=== PATIENT | female | born 1965 | race Caucasian/White ===

== ENCOUNTER 2016-12-17 22:17 | Inpatient (IN) | payer BC, OTHER ==
[~2016-12-17] VITALS: Ht 160 cm; Wt 79.4 kg
[2016-12-17 23:00] VITALS: BP 155/96
--- NOTE | 2016-12-17 23:05 | NUR ---
Pre-admission assessment Patient is a 51-year old, female, seen at intake, AAOx4, no SOB and noted to be anxious at this time. Provided reassurance regarding admission policies of the unit. Patient is coherent and able to respond to questions appropriately. Pt is ambulatory with steady gait. Pt reports taking the following substances: Xanax 2 mg PO HS (prescribed), Vicodin 5/300 mg PO PO daily (not prescribed) and Red Wine 1 bottle (750 ml) PO daily. Vital signs taken and as follows: CY=472/96, P=112, O2 sat on RA=98%, RR=18 T=98.4. Pt verbalized instructions and teachings regarding disposal of narcotic and other controlled home meds, unit protocols such as taking of vital signs Q4H and handling and disposal of contraband.
[2016-12-17] MEDS ORDERED: ONDANSETRON ODT 4 MG TAB.RAPDIS SL PRN (23:30)
[2016-12-17] MEDS ORDERED: ONDANSETRON 4 MG/2 ML VIAL IM PRN (23:30)
[2016-12-17] MEDS ORDERED: MAGNESIUM HYDROXIDE 30 ML LIQUID UDC PO PRN (23:30)
[2016-12-17] MEDS ORDERED: LORAZEPAM 2 MG/1 ML VIAL IM PRN (23:30)
[2016-12-17] MEDS ORDERED: MIRALAX 17 GM POWD.PACK PO PRN (23:30)
[2016-12-17] MEDS ORDERED: ACETAMINOPHEN 325 MG TABLET PO PRN (23:30)
[2016-12-17] MEDS ORDERED: THIAMINE HCL 200 MG/2 ML VIAL IM ONE (23:30)
[2016-12-17] MEDS ORDERED: MAG HYDROX/AL HYDROX/SIMETH 30 ML LIQUID UDC PO PRN (23:30)
[2016-12-17] MEDS ORDERED: BUPRENORPHINE HCL 2 MG TAB.SUBL SL PRN (23:30)
[2016-12-17] MEDS ORDERED: LOPERAMIDE HCL 2 MG CAPSULE PO PRN ×2 (23:30)
[2016-12-17] MEDS ORDERED: LORAZEPAM 1 MG TABLET PO PRN ×2 (23:30)
[2016-12-17] MEDS ORDERED: DICYCLOMINE HCL 20 MG TABLET PO PRN (23:30)
[2016-12-17] MEDS ORDERED: diphenhydrAMINE 50 MG CAPSULE PO PRN (23:30)
--- NOTE | 2016-12-17 23:35 | NUR ---
ADMISSION Patient is a 51-year old, female, admitted and escorted by [facility] at 2325 to unit. Skin check done, no open skin noted. With bruising on the right upper arm and right eye. Per pt, she hit the cabinet at home. Patient denies Suicidal Ideation nor Homicidal Ideation. No edema noted. Pt is ambulatory with steady gait. Pt stands 5'3" and weighs 175 pounds per bed scale. Vital signs are as follows: BP-152/95, T-98.1, P-108, RR-20 and SPO2 on RA=97%. Patient is AAOx4 and with anxiety noted at this time. Lung sounds clear bilaterally upon auscultation. No cough noted and bowel sounds are present on all quadrants. PERRLA and pupils are 3 mm upon visual check. Pt reports NKA, on Regular Diet and is Full Code. Pt denies any seizure history. Per pt, withdrawal symptoms are anxiety, goosebumps,chills, sweating, hot flushes, nausea and vomiting. Substance history as follows: 1) Xanax-per pt, she started using since 2009 and for the past 9 months, she has been taking prescribed Xanax 2 mg PO HS. Last taken was 12/16/2016 2100, 2 mg PO. 2) Vicodin-per pt, she started taking 5/300 mg PO daily since 2010. She verbalized that her mother was the one prescribed the medication but she was the one taking the said medication. Last taken was 12/17/2016 1800, 5/300 mg PO. 3) Red Wine-per pt, first drink was in 1992. For the past 4 weeks patient consumes 1 bottle (750 ml) daily. Last consumption was 12/17/2016 2000, 1 bottle of wine. However, lab result for % ethyl alcohol=0.00. Patient verbalized the she does not take other substances. UDS is positive for Opiates and Benzodiazepines. Patient informed MHx of Anxiety, Depression and Cosmetic Surgery of eyelids. Per pt, PCP is Dr. Briceño and Psychiatrist is Dr. Hu. Home medications were reconciled. Per pt, this is her first time in detox/treatment. Patient reports smoking cigarettes, Therese, finishes 1 pack in 3 days. Oriented patient to room and instructed with the use of the call light, placed within reach. Fall, universal, seizure and safety precautions implemented. No c/o significant pain at this time. All needs met. Information relayed to Dr. Muñoz. Patient refused PNA vaccine despite explanation of risks and benefits and Flu vaccine is out of season. COWS=9, CIWA=13. Will continue to monitor.
[2016-12-17 23:58] LABS: *AMPHETAMINE, URINE NEGATIVE (NEGATIVE); *BARBITURATE, URINE NEGATIVE (NEGATIVE); *CANNABINOID, URINE NEGATIVE (NEGATIVE); *COCCAINE, URINE NEGATIVE (NEGATIVE); *OPIATE, URINE POSITIVE (NEGATIVE); *PHENCYCLIDINE SCREEN,URINE NEGATIVE (NEGATIVE); *URINE HCG, QUAL NEGATIVE (NEGATIVE)
[2016-12-18] VITALS: BP 148/89
[2016-12-18] MEDS ORDERED: LORAZEPAM 1 MG TABLET PO ONE (00:30)
[2016-12-18] MEDS: TRAZODONE 50 MG TABLET PO PRN (00:35)
[2016-12-18] MEDS: CLONIDINE HCL 0.1 MG TABLET PO PRN ×2 (00:36→08:33)
--- NOTE | 2016-12-18 00:38 | NUR ---
RN notes PRN Clonidine, Trazodone and Zofran Pt noted with anxiety, administered Clonidine 0.1 mg PO. Pt c/o sleeplessness, administered Trazodone 50 mg PO. Pt with 1 episode of vomiting and with nausea, administered Zofran 4 mg IM. Will reassess.
[2016-12-18 00:40] LABS: BASOPHILS # (AUTO) 0.1 K/uL (0.0-8.0); BASOPHILS % (AUTO) 0.6 % (0.0-2.0); EOSINOPHILS # (AUTO) 0.1 K/uL (0.0-0.7); EOSINOPHILS % (AUTO) 0.7 % (0.0-7.0); HEMATOCRIT 36.3 % (37-47); HEMOGLOBIN 12.8 G/DL (12.0-16.0); LYMPHOCYTES # (AUTO) 3.6 K/UL (0.8-4.8); LYMPHOCYTES % (AUTO) 30.3 % (20.5-51.5); MEAN CORPUSCULAR HEMOGLOBIN 32.5 UUG (27.0-31.0); MEAN CORPUSCULAR HGB CONC 35 g/dL (32.0-37.0); MEAN CORPUSCULAR VOLUME 92.3 FL (81.0-99.0); MONOCYTES # (AUTO) 0.8 K/UL (0.1-1.30); MONOCYTES % (AUTO) 6.8 % (0.0-11.0); NEUTROPHILS # (AUTO) 7.3 K/UL (1.8-8.9); NEUTROPHILS % (AUTO) 61.6 % (38.5-71.5); PLATELET COUNT (AUTO) 397 K/UL (150-450); RED BLOOD CELL COUNT(AUTO) 3.93 MIL/UL (4.2-5.4); WHITE BLOOD COUNT (AUTO) 11.9 K/UL (4.0-11.2)
[2016-12-18] MEDS ORDERED: ONDANSETRON 4 MG/2 ML VIAL ONE (00:44)
[2016-12-18] MEDS ORDERED: TRAZODONE 50 MG TABLET ONE (00:44)
[2016-12-18] MEDS ORDERED: CLONIDINE HCL 0.1 MG TABLET ONE (00:44)
[2016-12-18] MEDS ORDERED: LORAZEPAM 1 MG TABLET ONE (00:44)
[2016-12-18 00:46] LABS: ETHANOL < 3 MG/DL (0-0)
[2016-12-18 00:50] LABS: ALANINE AMINOTRANSFERASE 29 U/L (14-59); ALKALINE PHOSPHATASE 90 U/L (50-136); AMYLASE 74 U/L (25-115); ASPARTATE AMINOTRANSFERASE 29 U/L (15-37); BILIRUBIN,TOTAL 0.3 mg/dL (0.2-1.0); CARBON DIOXIDE 31 mmol/L (21-32); CHLORIDE 100 mmol/L (98-107); GLUCOSE 118 mg/dL (74-106); LIPASE 205 U/L (73-393); MAGNESIUM 1.9 mg/dL (1.8-2.4); POTASSIUM 3.8 mmol/L (3.5-5.1); TOTAL PROTEIN, SERUM 7.4 g/dL (6.4-8.2); UREA NITROGEN, BLOOD 19 mg/dL (7-18)
[2016-12-18 01:01] LABS: THYROID STIMULATING HORMONE 8.483 mIU/mL (0.358-3.740)
[2016-12-18] MEDS ORDERED: ALPR2TAB2 PO (01:01)
[2016-12-18] MEDS ORDERED: ESCI20TA PO (01:01)
--- NOTE | 2016-12-18 01:08 | NUR ---
RN note Zofran reassess Pt verbalized relief from nausea and with no vomiting.
--- NOTE | 2016-12-18 01:45 | NUR ---
RN note reassess Pt asleep on bed with no SOB nor facial grimacing noted. PRN meds administered are effective. Addendum: 12/18/16 at 0212 by KAITY MAGUIRE RN BP amcfjmoex=943/86, Pulse=93
--- NOTE | 2016-12-18 02:12 | NUR ---
ASSUMED CARE ENDORSED BY TIFFANIE. KAITY Modi PATIENT IN BED, ASLEEP. RESPIRATION EVEN AND UNLABORED. NO S/S OF DISTRESS. SAFETY MEASURES IN PLACE. CALL LIGHT IN REACH. WILL CONTINUE TO MONITOR
--- NOTE | 2016-12-18 02:12 | NUR ---
Endorsement Patient asleep on bed with no untoward signs and symptoms noted. Endorsed to nurse for continuity of care.
[2016-12-18 04:00] VITALS: BP 135/87
--- NOTE | 2016-12-18 07:10 | NUR ---
END OF SHIFT NOTE PATIENT IS A 51 YEAR OLD FEMALE NEWLY ADMITTED FOR ETOH/BENZO/OPIATE DEPENDENCE.PATIENT IS FULL CODE, REGULAR DIET AND NO KNOWN ALLERGY. PATIENT REPORTED PMH OF ANXIETY,DEPRESSION AND COSMETIC SURGERY (EYELIDS).NO SEIZURE HISTORY. FIRST TIME IN TREATMENT. PATIENT'S DRUG OF CHOICE ARE XANAX (PRESCRIBED FOR ANXIETY), 2 MG FOR 9 MONTHS, VICODIN 5/300 MG (1 TAB) FOR 6 YEARS AND DRINKS RED WINE 750 ML FOR 4 WEEKS. UPON ADMISSION, PATIENT NOTED WITH RIGHT UPPER ARM BRUISE AND RIGHT EYE BRUISE D/T PER PATIENT HIT THE CABINET AT HOME. PATIENT REFUSED THIAMINE INJECTION. PATIENT WAS GIVEN PRN CLONIDINE AT 0036 TRAZADONE AT 0035, ZOFRAN IM AT 0035 AND ONE TIME ATIVAN AT 0035. ON FALL/SEIZURE PRECAUTION. SAFETY MEASURES IN PLACE. REMAIN FREE OF INJURY. COMPLIANT WITH MEDICATIONS . NO ADVERSE REACTION TO MEDICATIONS. CALL LIGHT IN REACH. WILL CONTINUE TO MONITOR SLEPT 5 HOURS. FLUID INTAKE 1,180 ML. VOIDED X 1 . NO BM . LAST COWS 2 AND CIWA 2.
--- NOTE | 2016-12-18 07:42 | NUR ---
START OF SHIFT Received patient in bed AOx4. Patient states she feels "not relaxed." She presents with bruising to right upper arm and right arm. No taper ordered yet. PRN Trazodone, Zofran, Clonidine, and Ativan given per night nurse. Patient slept 5 hours. She refused Thiamine injection per night nurse. COWS 2 CIWA 2 per night nurse. Encouraged patient to increase fluid intake. Encouraged patient to notify RN if S/S of W/D worsen. Will provide safe and supportive environment. Will monitor.
[2016-12-18 08:00] VITALS: BP 154/82
[2016-12-18] MEDS: MULTIVITAMINS,THERAPEUTIC TABLET PO SCH (08:33)
[2016-12-18] MEDS: FOLIC ACID 1 MG TABLET PO SCH (08:33)
[2016-12-18] MEDS: THIAMINE HCL 100 MG TABLET PO SCH (08:33)
--- NOTE | 2016-12-18 08:35 | NUR ---
PRN MEDICATION PRN Clonidine given for anxiousness. patient states she feels "not relaxed" and presents with anxiety and nervousness. Will reassess
[2016-12-18] MEDS ORDERED: TUBERCULIN,PURIF.PROT.DERIV. 5 TU/0.1 ML TEST ID ONE (09:00)
--- NOTE | 2016-12-18 09:00 | NUR ---
PRN REASSESSMENT patient laying in bed resting quietly appears less anxious. Bed locked and in lowest position call long in reach will monitor
[2016-12-18] MEDS: LORAZEPAM 1 MG TABLET PO SCH ×3 (09:42→21:00)
[2016-12-18] MEDS: ESCITALOPRAM OXALATE 10 MG TABLET PO SCH (10:58)
[2016-12-18 12:00] VITALS: BP 135/85
[2016-12-18] MEDS: HYDROXYZINE PAMOATE 25 MG CAPSULE PO PRN (15:35)
--- NOTE | 2016-12-18 15:35 | NUR ---
PRN MEDICATIONS prn vistaril given for c/o anxiety. Patient presents anxious and restless. Will reassess
[2016-12-18 16:00] VITALS: BP 121/72
--- NOTE | 2016-12-18 16:00 | NUR ---
PRN REASSESSMENT Patient noted to be sleeping calmly in her bed. RR even and unlabored. Call long within reach. Bed locked and in lowest position. Will monitor.
--- NOTE | 2016-12-18 18:35 | NUR ---
END OF SHIFT NOTE Patient started on 5 day Ativan taper and tolerating well. Patient presented with anxiousness during shift. Patient given PRN Clonidine and Vistaril for anxiety. Last COWS 6 CIWA 9. Patient rested in bed most of shift and isolated self from peers. She did not attend groups or activities. She increased fluid intake during shift. Vital signs stable. All needs met. All safety measures in place. Bed locked and in lowest position with call long within reach. Will endorse to night nurse.
--- NOTE | 2016-12-18 19:30 | NUR ---
START OF SHIFT Patient is a 51-year old, female, admitted for ETOH, Xanax and Opiate dependency . A/O X 4.NKA,full code,regular diet.Skin is intact, with bruising to right upper arm and right eye.Patient started on 5 day Ativan taper and tolerating well. Last COWS 6 CIWA 9.Per report, Patient rested in bed most of shift and isolated self from peers. She did not attend groups or activities.PO fluids encouraged as tolerated. All safety measures in place. Bed locked and in lowest position, side rails up x 2 with call long within reach. Will monitor.
[2016-12-18 20:00] VITALS: BP 133/63
[2016-12-18] MEDS: GABAPENTIN 300 MG CAPSULE PO SCH (21:00)
[2016-12-19] VITALS: BP 118/63
[2016-12-19 04:00] VITALS: BP 117/62
--- NOTE | 2016-12-19 06:40 | NUR ---
END OF SHIFT Patient is a 51-year old, female, admitted for ETOH, Xanax and Opiate dependency . A/O X 4.NKA,full code,regular diet.Skin is intact, with bruising to right upper arm and right eye.Patient started on 5 day Ativan taper and tolerating well. Last COWS 2 CIWA 2.No PRN meds given last night;fluid intake was 1,710 mls,voided x 1 .Pt slept 9 hours. PO fluids encouraged as tolerated. All safety measures in place. Bed locked and in lowest position, side rails up x 2 with call long within reach. Will monitor.
--- NOTE | 2016-12-19 07:00 | NUR ---
Start of Shift Endorsement received from nightshift nurse. Pt is a 51 y/o female admitted for Xanax, Vicodin and alcohol dependence. Pt has been placed on a 5 day Ativan taper. PT is tolerating the taper and mildly withdrawing at this time AEB CIWA 2, COWS 2. Did not receive any PRN medications. Pt reports sleeping 9 hours. Pt denies any Hx of a seizures. Pt presents with Hx of a anxiety and depression. VS WNL, full Code. PT is alert and oriented x4. Pt is in STABLE condition at this time. Remains compliant with medication and diet regimen. All needs have been met, All safety measures in place per hospital policy. Bed in lowest position, side rails up x2, call-light within reach. Will continue to monitor
[2016-12-19 08:00] VITALS: BP 122/69
[2016-12-19 08:09] LABS: HEPATITIS B SURFACE AG Negative (Negative)
[2016-12-19] MEDS: LORAZEPAM 1 MG TABLET PO SCH ×4 (08:39→20:17)
[2016-12-19] MEDS: THIAMINE HCL 100 MG TABLET PO SCH (08:39)
[2016-12-19] MEDS: GABAPENTIN 300 MG CAPSULE PO SCH ×2 (08:39→20:17)
[2016-12-19] MEDS: FOLIC ACID 1 MG TABLET PO SCH (08:39)
[2016-12-19] MEDS: ESCITALOPRAM OXALATE 10 MG TABLET PO SCH (08:39)
[2016-12-19] MEDS: MULTIVITAMINS,THERAPEUTIC TABLET PO SCH (08:39)
[2016-12-19 12:00] VITALS: BP 147/90
--- NOTE | 2016-12-19 15:37 | NUR ---
Client was encouraged by therapist to attend daily groups. Client was uncertain if she would or not.
[2016-12-19 16:00] VITALS: BP 147/84
--- NOTE | 2016-12-19 18:47 | NUR ---
End of Shift Endorsement given to nightshift nurse. Pt is a 51 y/o female admitted for Xanax, Vicodin and alcohol dependence. Pt has been placed on a 5 day Ativan taper. PT is tolerating the taper and mildly withdrawing at this time AEB CIWA 3, COWS 4. Did not receive any PRN medications. Educated pt on diet and medication regimen. Educated pt on S/E of medications. Encouraged pt to participate in groups and activities. Educated pt on none pharmacological ways of relieving anxiety and depression. Pt participated in groups and activities. Intake: 1855ml, Void x3, BM x2. VS WNL, full Code. PT is alert and oriented x4. Pt is in STABLE condition at this time. Remains compliant with medication and diet regimen. All needs have been met, All safety measures in place per hospital policy. Bed in lowest position, side rails up x2, call-light within reach. Will continue to monitor
--- NOTE | 2016-12-19 19:30 | NUR ---
START OF SHIFT Patient is a 51-year old, female, admitted for ETOH, Xanax and Opiate dependency . A/O X 4.NKA,full code,regular diet.Skin is intact, with bruising to right upper arm and right eye.Patient started on 5 day Ativan taper and tolerating well. Last COWS 3 CIWA 4.Pt received in stable condition,c/o feeling anxious,requesting to get her meds early with a sleeping pill. Emotional support provided. Educated on positive coping skills.PO fluids encouraged as tolerated. All safety measures in place. Bed locked and in lowest position, side rails up x 2 with call long within reach. Will monitor.
[2016-12-19 20:00] VITALS: BP 151/81
[2016-12-19] MEDS: TRAZODONE 50 MG TABLET PO PRN (20:17)
--- NOTE | 2016-12-19 20:20 | NUR ---
PRN MED PRN TRAZODONE GIVEN ORDERS FOR C/O INSOMNIA PER PT REQUEST.WILL CONTINUE TO MONITOR.
--- NOTE | 2016-12-19 21:20 | NUR ---
PRN F/U PT IS RESTING PEACEFULLY IN BED WITH EYES CLOSED.NO S/S OF DISTRESS NOTED.BREATHING IS EVEN AND NON LABORED.WILL BE MONITORED FOR SAFETY.
[2016-12-20] VITALS: BP 135/77
[2016-12-20] MEDS: HYDROXYZINE PAMOATE 25 MG CAPSULE PO PRN (02:43)
--- NOTE | 2016-12-20 02:45 | NUR ---
PRN MED- PRN VISTARIL GIVEN FOR ANXIETY.PT IS AWAKE,UNABLE TO GO BACK TO SLEEP.SNACK PROVIDED.NON PHARMACOLOGICAL INTERVENTIONS NOT EFFECTIVE.PRN VISTARIL GIVEN ORDERED TO HELP RELAX.WILL MONITOR.
--- NOTE | 2016-12-20 03:45 | NUR ---
Pt is resting in bed with eyes closed;no s/s of anxiety noted.
[2016-12-20 04:00] VITALS: BP 139/79
--- NOTE | 2016-12-20 06:45 | NUR ---
END OF SHIFT Patient is a 51-year old, female, admitted for ETOH, Xanax and Opiate dependency . A/O X 4.NKA,full code,regular diet.Skin is intact, with bruising to right upper arm and right eye.Patient started on 5 day Ativan taper and tolerating well. Last COWS 1 CIWA 1. PO fluids encouraged as tolerated.PRN Trazodone and Vistaril given last night with good effect.Pt slept 9 hrs,fluid intake was 646 mls;voided x 1.All safety measures in place. Bed locked and in lowest position, side rails up x 2 with call long within reach. Will monitor.
--- NOTE | 2016-12-20 07:30 | NUR ---
START OF SHIFT Received pt alert awake oriented x4 admitted for ETOH, Xanax and Opiate dependence. NKA, full code,regular diet. Skin is intact, with bruising to right upper arm and right eye. Patient cont on 5 day Ativan taper. PRN Trazodone/ Vistaril given per night nurse. Pt slept for 9 hours, Last COWS-1, CIWA-1. Educated regarding plan of care and medication regimen for the day with good verbal understanding. Encouraged pt to notify nurse if s/s of withdrawal worsen. Safety measures in place. call light kept with in reach, will continue to monitor closely.
[2016-12-20 07:58] LABS: BASOPHILS % (AUTO) 0.2 % (0.0-2.0); EOSINOPHILS # (AUTO) 0.2 K/uL (0.0-0.7); EOSINOPHILS % (AUTO) 1.9 % (0.0-7.0); HEMATOCRIT 35.1 % (37-47); HEMOGLOBIN 12.1 G/DL (12.0-16.0); LYMPHOCYTES # (AUTO) 2.5 K/UL (0.8-4.8); LYMPHOCYTES % (AUTO) 28.5 % (20.5-51.5); MEAN CORPUSCULAR HEMOGLOBIN 32.3 UUG (27.0-31.0); MEAN CORPUSCULAR HGB CONC 34 g/dL (32.0-37.0); MEAN CORPUSCULAR VOLUME 94.1 FL (81.0-99.0); MONOCYTES # (AUTO) 0.6 K/UL (0.1-1.30); MONOCYTES % (AUTO) 6.9 % (0.0-11.0); NEUTROPHILS # (AUTO) 5.4 K/UL (1.8-8.9); NEUTROPHILS % (AUTO) 62.5 % (38.5-71.5); PLATELET COUNT (AUTO) 340 K/UL (150-450); RED BLOOD CELL COUNT(AUTO) 3.73 MIL/UL (4.2-5.4)
[2016-12-20 08:00] VITALS: BP 143/85
[2016-12-20 08:07] LABS: WHITE BLOOD COUNT (AUTO) 8.7 K/UL (4.0-11.2)
[2016-12-20] MEDS: LORAZEPAM 1 MG TABLET PO SCH ×3 (08:26→20:18)
[2016-12-20] MEDS: GABAPENTIN 300 MG CAPSULE PO SCH ×3 (08:26→20:18)
[2016-12-20] MEDS: ESCITALOPRAM OXALATE 10 MG TABLET PO SCH (08:26)
[2016-12-20] MEDS: THIAMINE HCL 100 MG TABLET PO SCH (08:26)
[2016-12-20] MEDS: FOLIC ACID 1 MG TABLET PO SCH (08:26)
[2016-12-20] MEDS: MULTIVITAMINS,THERAPEUTIC TABLET PO SCH (08:26)
[2016-12-20 08:52] LABS: THYROID STIMULATING HORMONE 1.717 mIU/mL (0.358-3.740)
[2016-12-20 09:12] LABS: CREATININE 0.8 mg/dL (0.6-1.3); MAGNESIUM 2.2 mg/dL (1.8-2.4); POTASSIUM 4.1 mmol/L (3.5-5.1)
[2016-12-20 12:00] VITALS: BP 134/78
[2016-12-20 16:00] VITALS: BP 133/84
[2016-12-20] MEDS: METHOCARBAMOL 750 MG TABLET PO PRN (16:12)
[2016-12-20] MEDS: IBUPROFEN 600 MG TABLET PO PRN (16:12)
--- NOTE | 2016-12-20 16:12 | NUR ---
PRN MOTRIN/ROBAXIN Pt c/o of muscle spasms and general body aches 10/16. Patient medicated with [id number] Po/Motrin 600mg Po as ordered. Will cont to monitor and reassess.
--- NOTE | 2016-12-20 17:12 | NUR ---
REASSESSMENT Pt reported muscle cramps and body aches subside 07/18. Medications effective, Will cont to monitor.
--- NOTE | 2016-12-20 18:54 | NUR ---
END OF SHIFT NOTE Patient cont on 5 day Ativan taper and tolerating well. Patient presented with anxiousness/muscle spasms, general body pain during shift. Patient given PRN Robaxin/Motrin noted to be effective. Last COWS 3 CIWA 2. Patient rested and attend some groups. Vital signs stable. Encouraged Po fluids as tolerated. All needs attended. All safety measures in place. Bed locked and in lowest position with call long within reach. Pt endorse to night nurse.
[2016-12-20 20:00] VITALS: BP 134/85
--- NOTE | 2016-12-20 20:00 | NUR ---
Start of Shift Patient is a 51-year old, female, admitted for ETOH, Xanax and Opiate dependence. With PMHx of Anxiety, Depression and Cosmetic Surgery of the Eyelids. Pt with NKA, is Full Code and on Regular Diet. Skin is intact, with bruising to right upper arm and right eye, healing up well as compared to during admission. Patient on 5-day Ativan taper, started 12/18/2016. Pt is AAOx4, no SOB nor anxiety noted at this time. Pt is ambulatory with steady gait and no open skin noted. Fall, universal and safety prec in place. Call light within reach. No facial grimacing noted. Latest CIWA=3. Will continue to monitor.
[2016-12-20] MEDS: TRAZODONE 50 MG TABLET PO PRN (20:18)
--- NOTE | 2016-12-20 20:19 | NUR ---
RN note PRN Trazodone Pt c/o sleeplessness. Administered Trazodone 50 mg PO as ordered. Will reassess.
--- NOTE | 2016-12-20 21:25 | NUR ---
RN note reassess Pt asleep on bed, with no SOB nor facial grimacing noted. Trazodone effective.
[2016-12-21] VITALS: BP 132/86
[2016-12-21 04:00] VITALS: BP 137/83
--- NOTE | 2016-12-21 07:02 | NUR ---
End of Shift Patient is a 51-year old, female, admitted for ETOH, Xanax and Opiate dependence. With PMHx of Anxiety, Depression and Cosmetic Surgery of the Eyelids. Pt with NKA, is Full Code and on Regular Diet. Skin is intact, with bruising to right upper arm and right eye, healing up well as compared to during admission. Patient on 5-day Ativan taper, started 12/18/2016. Pt is AAOx4, no SOB nor anxiety noted at this time. Pt is ambulatory with steady gait and no open skin noted. Fall, universal and safety prec in place. Call light within reach. No facial grimacing noted. Latest CIWA=2, slept for 8 hours. Endorsed to AM shift nurse for continuity of care.
[2016-12-21 08:00] VITALS: BP 156/93
--- NOTE | 2016-12-21 08:05 | NUR ---
START OF SHIFT Pt 51 y/o female admitted for alcohol , opioid , and benzo dependence. Pt received in room with eyes closed resting, but easily arousable to name. Pt alert and oriented to name, place, and time. Perrla. Skin warm and slightly moist to touch. Respirations even and unlabored. It was reported that pt slept for 8 hours last night. Bed on lowest position with side rails x2 up for safety. Call light within reach. No distress noted at this time.
[2016-12-21] MEDS: METHOCARBAMOL 750 MG TABLET PO PRN (08:47)
[2016-12-21] MEDS: LORAZEPAM 1 MG TABLET PO SCH ×2 (08:48→20:12)
[2016-12-21] MEDS: FOLIC ACID 1 MG TABLET PO SCH (08:48)
[2016-12-21] MEDS: CLONIDINE HCL 0.1 MG TABLET PO PRN ×2 (08:48→17:21)
[2016-12-21] MEDS: MULTIVITAMINS,THERAPEUTIC TABLET PO SCH (08:48)
[2016-12-21] MEDS: GABAPENTIN 300 MG CAPSULE PO SCH ×3 (08:48→20:12)
[2016-12-21] MEDS: THIAMINE HCL 100 MG TABLET PO SCH (08:48)
[2016-12-21] MEDS: ESCITALOPRAM OXALATE 10 MG TABLET PO SCH (08:48)
--- NOTE | 2016-12-21 08:55 | NUR ---
PRN Pt states has shoulder pain 5/10, aching. Robaxin po prn per MD order given and tolerated well.
--- NOTE | 2016-12-21 08:56 | NUR ---
PRN Pt states she feels anxious. Catapres po prn per MD order given and tolerated well.
--- NOTE | 2016-12-21 09:56 | NUR ---
RAYNE CHAMBERS Pt observed walking around in patio. No distress noted at this time. Addendum: 12/21/16 at 1116 by KAITY MCCULLOUGH RN Pt with no c/o pain noted.
--- NOTE | 2016-12-21 10:00 | NUR ---
LABS LABS: RBC=3.73 Hct=35.1. Dr. Alas made aware.
[2016-12-21 12:00] VITALS: BP 123/72
[2016-12-21] MEDS: ARIPIPRAZOLE 2 MG TABLET PO SCH (12:17)
--- NOTE | 2016-12-21 13:38 | NUR ---
Therapist encouraged client to attend daily group therapy sessions. Client stated that she would attend group at 11am and 3:30pm.
[2016-12-21] MEDS: IBUPROFEN 600 MG TABLET PO PRN (14:20)
--- NOTE | 2016-12-21 14:27 | NUR ---
PRN Pt states has right shoulder pain aching 4/10. Ibuprofen po prn per MD order given and tolerated well.
--- NOTE | 2016-12-21 15:27 | NUR ---
PRN KOFIAL Pt observed in room on bed with eyes closed resting, but easily arousable to name. Bed on lowest position with side rails x2 up for safety. No distress noted at this time.
[2016-12-21 17:15] VITALS: BP 155/99
--- NOTE | 2016-12-21 17:23 | NUR ---
PRN Pt states feels anxious. Catapres po prn per MD order given and tolerated well.
--- NOTE | 2016-12-21 18:02 | NUR ---
END OF SHIFT Pt 51 y/o female admitted for alcohol , opioid , and benzo dependence. Pt alert and oriented to name, place, and time. Perrla. Skin warm and slightly moist to touch. Respirations even and unlabored. Pt observed mostly isolative to room throughout the day, but did attend group activity. Pt medication compliant and tolerated well. No ASE noted. Pt was seen by Dr. Grace and Dr. Alas today. Bed on lowest position with side rails x2 up for safety. Call light within reach. No distress noted at this time.
[2016-12-21 20:00] VITALS: BP 115/74
--- NOTE | 2016-12-21 20:00 | NUR ---
Start of Shift Pt is 51 year old female admitted for benzo/ETOH/opioid dependence, placed on 5 day Ativan taper. Pt reported consuming Xanax 2mg/daily, red wine 750ml/daily and Vicodin 5/300 mg/daily. PMH: anxiety, depression and cosmetic surgery (eyelids). NKA, regular diet, fall precautions and full code. Upon assessment, Pt presents with anxiety, chills throughout body, skin flushed, noted with moderate sweat,Respirations even/unlabored, denies SOB/chest pain, skin noted to be flushed, denies SI/HI, bowel sounds active x4. Safety measures in place, call light within reach, side rails up x2, bed locked and in low position. Will continue to monitor.
[2016-12-21] MEDS: TRAZODONE 50 MG TABLET PO PRN (20:12)
--- NOTE | 2016-12-21 20:12 | NUR ---
PRN Administration Pt requested aid to help her sleep - non-pharmacological methods ineffective. Trazodone 50mg PRN administered. Safety measures in place. will continue to monitor.
--- NOTE | 2016-12-21 21:12 | NUR ---
PRN Reassessment Upon reassessment, pt is resting in bed, eyes closed, no s/s of acute distress noted. safety measures in place. Will continue to monitor.
[2016-12-21] MEDS: HYDROXYZINE PAMOATE 25 MG CAPSULE PO PRN (22:03)
--- NOTE | 2016-12-21 22:03 | NUR ---
PRN Administration Pt reported feeling anxious - non- pharmacological methods ineffective. Vistaril 25mg PRN administered. safety measures in place. Will continue to monitor.
--- NOTE | 2016-12-21 23:04 | NUR ---
PRN Reassessment Upon reassessment, pt is sleeping, respirations even/unlabored, no s/s of acute distress noted. Safety measures in place. Will continue to monitor.
[2016-12-22] VITALS: BP 112/63
--- NOTE | 2016-12-22 | NUR ---
Vital Signs BP 112/63, pulse 79, SpO2 98%, respirations 16, temp 98.1, no pain 0/10 CIWA deferred d/t pt sleeping - to asses while pt is awake as ordered. Safety measures in place. Will continue to monitor.
[2016-12-22 04:00] VITALS: BP 121/68
--- NOTE | 2016-12-22 04:00 | NUR ---
Vital Signs BP 121/68, pulse 76, SpO2 97%, respirations 16, temp 98.0, no pain 0/10 CIWA deferred d/t pt sleeping - to asses while pt is awake as ordered. Safety measures in place. Will continue to monitor.
--- NOTE | 2016-12-22 07:00 | NUR ---
End of Shift Pt is 51 year old female admitted for benzo/ETOH/opioid dependence, placed on 5 day Ativan taper. Pt reported consuming Xanax 2mg/daily, red wine 750ml/daily and Vicodin 5/300 mg/daily. PMH: anxiety, depression and cosmetic surgery (eyelids). NKA, regular diet, fall precautions and full code. During shift, Pt presented with anxiety, chills throughout body, skin flushed, noted with moderate sweat - scheduled taper medications administered, effective in management of s/s of withdrawal as reported by pt, ROSALIE 3. Trazodone 50mg PRN and Vistaril 25mg PRN administered for sleep and anxiety, effective. Pt slept for 8 hours, intake of 1000 ml PO and voids x3. Safety measures in place, call light within reach, side rails up x2, bed locked and in low position. Endorsed to day shift nurse.
--- NOTE | 2016-12-22 07:30 | NUR ---
START OF SHIFT Rcvd endorsement fro ongoing nurse, client is in bed AOx4. Client states she feels "not so good, today, a little anxious and my arm is very sore, I think I need x-ray to make sure is not broken." She presents with bruising to right upper arm and area below Right eye, due to a fall at home on 12/17/16. Right eye sclera clear and conjunctiva pink, she denies any vision problems. She is guarding her R arm, no swelling noted, demonstrated and encouraged passive ROM, she verbalized understanding. Last dose of 5 day Ativan taper schedule this am, she is tolerating well. PRN Trazodone for inability to sleep and Vistaril for anxiety, she sleep 8 hrs. Last CIWA 3 @ 1999. Encouraged client to increase fluid intake to facilitate detox. Encouraged to attend group therapy for skill to maintain sobriety. Call light within reach. Bed in lowest/locked position. Side rails x 2/padded. Will provide safe and supportive environment.
[2016-12-22 08:00] VITALS: BP 157/82
[2016-12-22] MEDS: ARIPIPRAZOLE 2 MG TABLET PO SCH (08:16)
[2016-12-22] MEDS: ESCITALOPRAM OXALATE 10 MG TABLET PO SCH (08:16)
[2016-12-22] MEDS: GABAPENTIN 300 MG CAPSULE PO SCH ×3 (08:16→21:57)
[2016-12-22] MEDS: FOLIC ACID 1 MG TABLET PO SCH (08:16)
[2016-12-22] MEDS: MULTIVITAMINS,THERAPEUTIC TABLET PO SCH (08:16)
[2016-12-22] MEDS: THIAMINE HCL 100 MG TABLET PO SCH (08:16)
[2016-12-22] MEDS ORDERED: LORAZEPAM 1 MG TABLET PO SCH (09:00)
[2016-12-22 12:00] VITALS: BP 141/80
[2016-12-22] MEDS ORDERED: OXYMETAZOLINE NASAL 0.05% 15 ML SPRAY NS PRN (12:45)
[2016-12-22 13:23] LABS: *AMPHETAMINE, URINE NEGATIVE (NEGATIVE); *BARBITURATE, URINE NEGATIVE (NEGATIVE); *CANNABINOID, URINE NEGATIVE (NEGATIVE); *COCCAINE, URINE NEGATIVE (NEGATIVE); *OPIATE, URINE NEGATIVE (NEGATIVE); *PHENCYCLIDINE SCREEN,URINE NEGATIVE (NEGATIVE)
--- NOTE | 2016-12-22 14:59 | NUR ---
Therapist advised client of group times this morning. Client stated she would be at all groups.
[2016-12-22 16:00] VITALS: BP 130/88
[2016-12-22] MEDS ORDERED: DICY20TA28 PO (18:24)
[2016-12-22] MEDS ORDERED: METH-33 PO (18:24)
[2016-12-22] MEDS ORDERED: GABA-534 PO (18:24)
[2016-12-22] MEDS ORDERED: HYDR-3895 PO (18:24)
[2016-12-22] MEDS ORDERED: IBUP-1955 PO (18:24)
[2016-12-22] MEDS ORDERED: TRAZ-144 PO (18:24)
[2016-12-22] MEDS ORDERED: CLON0.1T14 PO (18:24)
[2016-12-22] MEDS: HYDROXYZINE PAMOATE 25 MG CAPSULE PO PRN (18:39)
[2016-12-22] MEDS: CLONIDINE HCL 0.1 MG TABLET PO PRN (18:39)
--- NOTE | 2016-12-22 18:39 | NUR ---
PRN Vistaril, Clonidine Client presents with anxious mood, she reports anxiety, chills and irritability, Vistaril 25mg and Clonidine 0.1mg PO given respectively. Relaxation breathing techniques demonstrated, she needs reinforcement. Call light within reach. Will continue to monitor.
--- NOTE | 2016-12-22 19:00 | NUR ---
Start of Shift Patient Received. Patient is in her room, awake, alert and verbally responsive. Breathing even and non labored. Patient is a 51 year old female, admitted on 12/17/16 for Benzo, Opioid, and ETOH Dependence, under the care of Dr. Muñoz. Patient was placed on a 5 Day Ativan taper which has completed. Patient verbalized No known allergies, wishes to be full code, following a regular diet, placed on fall precautions. Skin is noted with a large discoloration to the right arm and also discoloration to the right eye with no visual disturbance due to patient verbalizing running into a cabinet at home. Patient verbalized past medical history as Anxiety, Depression, and Cosmetic surgery to both eye lids. Per endorsement, patient is set for discharge tomorrow 12/23/16. Currently awaiting results for xray to right arm. Patient was given PRN Vistaril and Clonidine. Last noted CIWA 3. All needs attended to promptly. Will continue plan of care as ordered.
--- NOTE | 2016-12-22 19:00 | NUR ---
END OF SHIFT Patient is a 51-year old, female, admitted for ETOH, Xanax and Opiate withdrawal . A/O X 4.NKA,full code,regular diet.Skin is intact, with bruising to right upper arm and right eye.Patient completed 5 day Ativan taper and tolerated well. Last COWS 3 CIWA 3. PO fluids encouraged as tolerated. PRN Clonidine and Vistaril for anxiety, irritability. incoming nurse to reassess. .All safety measures in place. Bed locked and in lowest position, side rails up x 2 with call long within reach. Will monitor. Addendum: 12/22/16 at 2023 by SAMIR LAURA RN no COWS assessment
--- NOTE | 2016-12-22 19:45 | NUR ---
PRN Medication Reassessment patient noted in nurse station requesting personal belongings. Primary nurse assisted patient with belongings. Patient was able to verbalize "I feel better than I was feelings before. I know I have alot of work and its not going to be easy." allowed patient to verbalize feelings and offered support. PRN Vistaril and Clonidine noted to be effective. Will continue plan of care as ordered.
[2016-12-22 20:30] VITALS: BP 128/82
[2016-12-22] MEDS: TRAZODONE 50 MG TABLET PO PRN (21:57)
--- NOTE | 2016-12-22 22:00 | NUR ---
PRN Medication Administration 2199 Patient returned to unit and is requesting PRN medication for inability of falling asleep. All non pharmacological interventions noted not effective. PRN Trazodone given as per order. Will continue to monitor.
--- NOTE | 2016-12-22 23:00 | NUR ---
PRN Medication Reassessment Patient is noted in bed sleeping. Breathing even and non labored. No signs of pain or discomfort noted. Patient was given PRN Trazodone for inability of falling asleep. Medication noted to be effective. Patient respirations noted to be 16. Patient continues to rest with no interruptions. Will continue to monitor.
[2016-12-23 00:44] VITALS: BP 118/72
[2016-12-23] MEDS: METHOCARBAMOL 750 MG TABLET PO PRN (03:23)
[2016-12-23] MEDS: HYDROXYZINE PAMOATE 25 MG CAPSULE PO PRN (03:23)
--- NOTE | 2016-12-23 03:25 | NUR ---
PRN Medication Administration patient noted awake and verbalizing increased muscle spasms of the lower back and increased anxiety. All non pharmacological interventions noted not effective. PRN Vistaril and Robaxin administered as per orders. Will continue to monitor.
[2016-12-23 04:20] VITALS: BP 111/74
--- NOTE | 2016-12-23 04:20 | NUR ---
PRN Medication Reassessment Patient noted sleeping but arousbale to verbal stimuli. breathing even and non labored. patient respirations noted to be 16. Patient was given PRN Vistaril and Robaxin for increased anxiety and increased muscle spasms. vital signs rendered and patient able to verbalize anxiety and muscle spasms had subsided. PRN Vistaril and anxiety noted to be effective. Will continue to monitor.
--- NOTE | 2016-12-23 07:04 | NUR ---
End of Shift Patient Received. Patient is in her room sleeping. Breathing even and non labored. No signs of pain or discomfort noted. Patient is a 51 year old female, admitted on 12/17/16 for Benzo, Opioid, and ETOH Dependence, under the care of Dr. Muñoz. Patient was placed on a 5 Day Ativan taper which has completed. Patient verbalized No known allergies, full code, regular diet, on fall precautions. Skin is noted with a slight discoloration to the right arm and also discoloration to the right eye with no visual disturbance. Patient verbalized past medical history as Anxiety, Depression, and Cosmetic surgery to both eye lids. Patient was given PRN trazodone, Vistaril and Robaxin with all medications noted to be effective. Patient is set for discharge today 12/23/16. All needs attended to promptly. Will continue plan of care as ordered.
--- NOTE | 2016-12-23 07:30 | NUR ---
START OF SHIFT Rcvd endorsement fro ongoing nurse, client is walking in the hallway, she is AOx4. She presents with depressed mood, flat affect. Client states, "I feel anxious, I like the nurses here and I don't know how is going to be where I am going." Educate client that some level of anxiety is expected where going into a new environment. She is schedule for DC this am, reviewed her discharge instructions and rx medications, she verbalized understanding. Right shoulder x-rays, 4 views.Small avulsion fracture of the greater tuberosity of the humeral head. She presents with fading bruising to right upper arm and area below Right eye, due to a fall at home on 12/17/16. Client denies any vision problems. She is guarding her R arm, no swelling noted, demonstrated passive ROM, client able to perform with some limitations, abduction 45 degrees. Client completed 5 day Ativan taper. She is schedule for Last dose of 5 day Ativan taper schedule this am. PRN Trazodone for inability to sleep, Vistaril for anxiety and Robaxin for increase muscle spasm, noted effective, she slept 8 hrs. Last CIWA 0 @ 0400. Call light within reach. Bed in lowest/locked position. Side rails x 2/padded. Will continue to monitor.
[2016-12-23] MEDS: ESCITALOPRAM OXALATE 10 MG TABLET PO SCH (08:12)
[2016-12-23] MEDS: THIAMINE HCL 100 MG TABLET PO SCH (08:13)
[2016-12-23] MEDS: FOLIC ACID 1 MG TABLET PO SCH (08:13)
[2016-12-23] MEDS: MULTIVITAMINS,THERAPEUTIC TABLET PO SCH (08:13)
[2016-12-23] MEDS: GABAPENTIN 300 MG CAPSULE PO SCH (08:13)
[2016-12-23] MEDS: ARIPIPRAZOLE 2 MG TABLET PO SCH (08:13)
[2016-12-23 08:47] VITALS: BP 140/84
--- NOTE | 2016-12-23 10:47 | NUR ---
Discharge note Allan was admitted for withdrawal from alcohol and alprazolam. Client has a recent CIWA of 1. Pt VS are WNL. Client denies any SI/HI. Client verbalized her understanding of the discharge instructions. Client has no complaints at this time. Client discharge instructions and prescriptions and all belongings returned to client. Dr. Alas inform client of the R arm x-ray results, made aware of her limitation, and to make an appointment to see an orthopedic MD in [place], she verbalized understanding. All needs addressed at this time. Client ID band removed, she ambulated off of unit, client left facility via [facility] for [facility].
== END 2016-12-23 10:47 | disposition other institution (70) | DRG 895 ==
LOC: SRC 22:25
PROVIDERS: ADMIT Internal Medicine; ATTEND Internal Medicine
PROC: HZ2ZZZZ Detoxification Services for Substance Abuse Treatment (ICD-10-PCS; principal; 2016-12-17)
PROC: HZ31ZZZ Individual Counseling for Substance Abuse Treatment, Behavioral (ICD-10-PCS; 2016-12-19)
PROC: HZ41ZZZ Group Counseling for Substance Abuse Treatment, Behavioral (ICD-10-PCS; 2016-12-21)
DX: F10.230 Alcohol dependence with withdrawal, uncomplicated (principal); F11.20 Opioid dependence, uncomplicated; F33.1 Major depressive disorder, recurrent, moderate; F13.230 Sedative, hypnotic or anxiolytic dependence with withdrawal, uncomplicated; F17.210 Nicotine dependence, cigarettes, uncomplicated; Y90.9 Presence of alcohol in blood, level not specified; G47.00 Insomnia, unspecified; F41.9 Anxiety disorder, unspecified; M25.511 Pain in right shoulder; E07.81 Sick-euthyroid syndrome; E86.0 Dehydration; R73.9 Hyperglycemia, unspecified; D72.823 Leukemoid reaction; Z82.5 Family history of asthma and other chronic lower respiratory diseases; Z81.8 Family history of other mental and behavioral disorders; Z82.61 Family history of arthritis
CPT/HCPCS: 36415; 70030-TC; 73030; 80307; 80346; 80361; 83690; 83735; 84443; 84703; 85025; 86580; 86592; 86705; 86803; 87340; 87806; 93005; G0480; J2405